=== PATIENT | male | born 1945 | race Caucasian/White ===

== ENCOUNTER 2017-02-27 09:36 | Inpatient (IN) | payer OTHER ==
[~2017-02-27] VITALS: Ht 182.9 cm; Wt 100.0 kg
[2017-02-27] VITALS (7 sets, daily range): BP systolic 57–173; BP diastolic 35–87
[2017-02-27 09:50] LABS: CREATININE 1.2 mg/dL (0.6-1.3); POTASSIUM 4.1 mEq/L (3.7-5.4)
[2017-02-27 09:52] LABS: EOSINOPHIL (%) 1.7 % (0-5); EOSINOPHIL COUNT 0.1 K/uL (0-0.3); HEMATOCRIT 49.7 % (38.0-50.0); IMMATURE GRANULOCYTE (%) 0.3 % (0.0-0.7); INSTRUMENT ABS NEUTROPHIL CT 4.6 K/uL; LYMPHOCYTE COUNT 2.3 K/uL (1.0-2.8); MCH 31.4 PG (29.0-34.0); MCHC 33.4 G/DL (30.0-36.0); MCV 94.1 FL (86-99); MEAN PLAT.VOLUME 11.2 uM^3 (9.0-12.4); MONOCYTE (%) 9.8 % (3-12); MONOCYTE COUNT 0.8 K/uL (0-0.8); NEUTROPHIL (%) 58.7 % (45-76); NEUTROPHIL COUNT 4.6 K/uL (1.8-6.4); PLATELET COUNT 233 K/uL (156-360); RBC DIS.WIDTH-CV 12.5 % (11.8-14.6); RBC DIS.WIDTH-SD 43.2 % (39-53); RED BLOOD COUNT 5.28 M/uL (4.00-5.50); WHITE BLOOD COUNT 7.8 K/uL (4.1-10.2)
[2017-02-27 10:08] LABS: INTER. NORMALIZED RATIO 1.1; PROTHROMBIN TIME 11.5 (9.2-11.2); PTT 24.7 (25-32)
[2017-02-27 10:21] LABS: AMYLASE 65 IU/L (1-118); CHLORIDE 104 mEq/L (99-109); POTASSIUM 4.1 mEq/L (3.7-5.4); SODIUM 138 mEq/L (136-147)
[2017-02-27 10:22] LABS: GLUCOSE 183 mg/dL (70-99)
[2017-02-27 10:24] LABS: ANION GAP 14 MEQ/L (2-14)
[2017-02-27 10:25] LABS: SERUM ETHYL ALCOHOL < 10 mg/dL
[2017-02-27 10:26] LABS: GFR ESTIMATE (CALCULATED) 53 mL/min/
[2017-02-27 10:27] LABS: TROP-I INTERPRETATION NEGATIVE; TROPONIN-I < 0.01 ng/mL (0.0-0.30); UREA NITROGEN (BUN) 13 mg/dL (9-23)
[2017-02-27 10:29] LABS: LIPASE 51 U/L (1.0-51.0)
[2017-02-27 11:48] LABS: BASE EXCESS -10.4 mEq/L (-3 to +3); BICARBONATE 21.2 mEq/L (22-26); CARBOXY HGB 1.3 % (0-5); METHEMOGLOBIN 1.5 % (0-1.5); PCO2 70 mm Hg (35-45); PO2 40 mm Hg (80-100); pH 7.09 (7.35-7.45)
[2017-02-27 11:51] LABS: SITE FEMORAL
[2017-02-27 11:53] LABS: COMMENTS - BLOOD GASES DRAWN BY CATH LAB
[2017-02-27 13:30] LABS: BICARBONATE 24.6 mEq/L (22-26); CARBOXY HGB 1.6 % (0-5); METHEMOGLOBIN 1.2 % (0-1.5)
[2017-02-27 13:31] LABS: COMMENTS - BLOOD GASES A+C+; DEVICE BAG; FI02 100 %; O2 FLOW 20 L/MIN; PCO2 83 mm Hg (35-45); PO2 67 mm Hg (80-100); SITE LR; TOTAL RESP RATE 24 resp/min; pH 7.08 (7.35-7.45)
[2017-02-27 13:32] LABS: PEEP 20 CM/H20
[2017-02-27 14:50] LABS: BASE EXCESS -10.1 mEq/L (-3 to +3); CARBOXY HGB 1.3 % (0-5); COMMENTS - BLOOD GASES A+C+; METHEMOGLOBIN 1.4 % (0-1.5); PCO2 52 mm Hg (35-45); PO2 71 mm Hg (80-100); SITE RR; pH 7.17 (7.35-7.45)
[2017-02-27 14:51] LABS: DEVICE VENT; FI02 100 %; MECHANICAL RATE 25 resp/min; MODE BILEVEL; TOTAL RESP RATE 30 resp/min
[2017-02-27 16:27] LABS: METH RESISTANT S AUREUS PCR NEGATIVE (NEGATIVE)
[2017-02-27 16:29] LABS: SPECIMEN PROCESSING CONTROL PASS
[2017-02-27 16:30] LABS: PROBE CHECK PASS
[2017-02-27 19:01] LABS: TROP-I INTERPRETATION POSITIVE; TROPONIN-I > 50.00 ng/mL (0.0-0.30)
[2017-02-27 19:31] LABS: BASE EXCESS -9.6 mEq/L (-3 to +3); BICARBONATE 17.6 mEq/L (22-26); METHEMOGLOBIN 1.7 % (0-1.5)
[2017-02-27 19:32] LABS: COMMENTS - BLOOD GASES A+C+; DEVICE VENT; FI02 100 %; PCO2 42 mm Hg (35-45); PO2 167 mm Hg (80-100); SITE RR; pH 7.23 (7.35-7.45)
[2017-02-27 19:33] LABS: INSPIRATION TIME 1.8 seconds; MECHANICAL RATE 25 resp/min; MODE BILEVEL; PEEP 10 CM/H20; PRESSURE CONTROL VENTILATION 30 CM H20; TOTAL RESP RATE 25 resp/min
[2017-02-27 23:57] LABS: CHLORIDE 109 mEq/L (99-109); SODIUM 136 mEq/L (136-147)
[2017-02-27 23:58] LABS: GLUCOSE 181 mg/dL (70-99)
[2017-02-28] LABS: ANION GAP 11 MEQ/L (2-14)
[2017-02-28 00:03] LABS: UREA NITROGEN (BUN) 19 mg/dL (9-23)
[2017-02-28 00:04] LABS: BASE EXCESS -10.5 mEq/L (-3 to +3); BICARBONATE 15.2 mEq/L (22-26); COMMENTS - BLOOD GASES C+; DEVICE 840 VENT; FI02 80 %; INSPIRATION TIME 1.8 seconds; MECHANICAL RATE 25 resp/min; METHEMOGLOBIN 1.4 % (0-1.5); MODE BILEVEL; PCO2 33 mm Hg (35-45); PO2 295 mm Hg (80-100); SITE ALINE; TOTAL RESP RATE 25 resp/min; pH 7.27 (7.35-7.45)
[2017-02-28 00:05] LABS: PEEP 10 CM/H20; PRESSURE CONTROL VENTILATION 30 CM H20
[2017-02-28 00:22] LABS: GFR ESTIMATE (CALCULATED) 29 mL/min/; POTASSIUM 6.1 mEq/L (3.7-5.4)
[2017-02-28 00:48] LABS: TROP-I INTERPRETATION POSITIVE
[2017-02-28 01:44] LABS: TROPONIN-I > 440.00 ng/mL (0.0-0.30)
[2017-02-28 02:45] LABS: CHLORIDE 114 mEq/L (99-109); MAGNESIUM 1.8 mg/dL (1.3-2.7); POTASSIUM 5.7 mEq/L (3.7-5.4); SODIUM 137 mEq/L (136-147)
[2017-02-28 02:47] LABS: GLUCOSE 186 mg/dL (70-99)
[2017-02-28 02:48] LABS: ANION GAP 9 MEQ/L (2-14)
[2017-02-28 02:51] LABS: GFR ESTIMATE (CALCULATED) 29 mL/min/; INTER. NORMALIZED RATIO 1.3; PROTHROMBIN TIME 12.8 (9.2-11.2); UREA NITROGEN (BUN) 20 mg/dL (9-23)
[2017-02-28 02:52] LABS: PTT 114.8 (25-32)
[2017-02-28 05:50] LABS: BASE EXCESS -9.5 mEq/L (-3 to +3); BICARBONATE 16.5 mEq/L (22-26); CARBOXY HGB 1.2 % (0-5); COMMENTS - BLOOD GASES C+; DEVICE 980 VENT; FI02 60 %; MECHANICAL RATE 25 resp/min; METHEMOGLOBIN 1.4 % (0-1.5); MODE BILEVEL; PCO2 36 mm Hg (35-45); PO2 182 mm Hg (80-100); SITE ALINE; TOTAL RESP RATE 25 resp/min; pH 7.27 (7.35-7.45)
[2017-02-28 05:51] LABS: INSPIRATION TIME 1.8 seconds; PEEP 10 CM/H20; PRESSURE CONTROL VENTILATION 28 CM H20
[2017-02-28 06:42] LABS: ANION GAP 9 MEQ/L (2-14); CHLORIDE 112 MEQ/L (99-109); GFR ESTIMATE (CALCULATED) 29 mL/min/; GLUCOSE 177 mg/dL (70-99); POTASSIUM 5.4 MEQ/L (3.7-5.4); SAMPLE HEMOLYSIS CHECK 0; SAMPLE ICTERIC CHECK 0; SAMPLE LIPEMIA CHECK 0; SODIUM 137 MEQ/L (136-147); UREA NITROGEN (BUN) 21 mg/dL (9-23)
[2017-02-28 06:53] LABS: EOSINOPHIL (%) 0 % (0-5); HEMATOCRIT 50.2 % (38.0-50.0); IMMATURE GRANULOCYTE (%) 0.6 % (0.0-0.7); IMMATURE GRANULOCYTE COUNT 0.1 K/uL; INSTRUMENT ABS NEUTROPHIL CT 12.1 K/uL; LYMPHOCYTE COUNT 2.2 K/uL (1.0-2.8); MCH 31.2 PG (29.0-34.0); MCHC 32.3 G/DL (30.0-36.0); MCV 96.5 FL (86-99); MEAN PLAT.VOLUME 11.7 uM^3 (9.0-12.4); MONOCYTE (%) 11.4 % (3-12); MONOCYTE COUNT 1.9 K/uL (0-0.8); NEUTROPHIL (%) 74.5 % (45-76); NEUTROPHIL COUNT 12.1 K/uL (1.8-6.4); PLATELET COUNT 234 K/uL (156-360); RBC DIS.WIDTH-CV 13.4 % (11.8-14.6)
[2017-02-28 06:54] LABS: WHITE BLOOD COUNT 16.2 K/uL (4.1-10.2)
[2017-02-28 07:11] LABS: TROP-I INTERPRETATION POSITIVE; TROPONIN-I > 440.00 ng/mL (0.0-0.30)
[2017-02-28 11:52] VITALS: BP 96/65
[2017-02-28 12:15] LABS: BASE EXCESS -11.3 mEq/L (-3 to +3); BICARBONATE 14.9 mEq/L (22-26); CARBOXY HGB 1.6 % (0-5); METHEMOGLOBIN 1.5 % (0-1.5); PCO2 34 mm Hg (35-45); PO2 159 mm Hg (80-100); SITE A LINE
[2017-02-28 12:16] LABS: CONTINUOUS POS AIRWAY PRESSURE 10 cm H2O; DEVICE VENT; FI02 60 %; INSPIRATION TIME 1.8 seconds; MECHANICAL RATE 25 resp/min; MODE BILEVEL; PEEP 26 CM/H20; TOTAL RESP RATE 25 resp/min
[2017-02-28 12:17] LABS: pH 7.25 (7.35-7.45)
[2017-02-28 13:08] LABS: TROP-I INTERPRETATION POSITIVE
[2017-02-28 13:29] LABS: TROPONIN-I 358.04 ng/mL (0.0-0.30)
== END 2017-02-28 15:31 | disposition short-term general hospital (02) | DRG 270 ==
LOC: EME 09:36 → CATH 10:12 → 4WEST 11:35 → 2SOUTH 11:35 → 4WEST 13:02
PROVIDERS: Anesthesiology; Emergency Medicine; Internal Medicine Cardiovascular Disease; Internal Medicine Pulmonary Disease
PROC: 5A1223Z Performance of Cardiac Pacing, Continuous (ICD-10-PCS; principal; 2017-02-27)
PROC: 4A023N7 Measurement of Cardiac Sampling and Pressure, Left Heart, Percutaneous Approach (ICD-10-PCS; principal; 2017-02-27)
PROC: B2151ZZ Fluoroscopy of Left Heart using Low Osmolar Contrast (ICD-10-PCS; principal; 2017-02-27)
PROC: 027034Z Dilation of Coronary Artery, One Artery with Drug-eluting Intraluminal Device, Percutaneous Approach (ICD-10-PCS; principal; 2017-02-27)
PROC: B2111ZZ Fluoroscopy of Multiple Coronary Arteries using Low Osmolar Contrast (ICD-10-PCS; principal; 2017-02-27)
PROC: 5A02210 Assistance with Cardiac Output using Balloon Pump, Continuous (ICD-10-PCS; principal; 2017-02-27)
PROC: 0BH17EZ Insertion of Endotracheal Airway into Trachea, Via Natural or Artificial Opening (ICD-10-PCS; 2017-02-27)
PROC: 5A1945Z Respiratory Ventilation, 24-96 Consecutive Hours (ICD-10-PCS; 2017-02-27)
PROC: 03H Upper Arteries, Insertion (ICD-10-PCS; 2017-02-27)
PROC: 03HB03Z Insertion of Infusion Device into Right Radial Artery, Open Approach (ICD-10-PCS; 2017-02-27)
DX: I21.01 ST elevation (STEMI) myocardial infarction involving left main coronary artery (principal); R57.0 Cardiogenic shock; I49.01 Ventricular fibrillation; J96.00 Acute respiratory failure, unspecified whether with hypoxia or hypercapnia; I50.21 Acute systolic (congestive) heart failure; I46.2 Cardiac arrest due to underlying cardiac condition; E87.2 Acidosis; I50.1 Left ventricular failure, unspecified; I47.2 Ventricular tachycardia; I34.0 Nonrheumatic mitral (valve) insufficiency; J44.9 Chronic obstructive pulmonary disease, unspecified; J45.909 Unspecified asthma, uncomplicated; I11.0 Hypertensive heart disease with heart failure; I35.1 Nonrheumatic aortic (valve) insufficiency; K64.8 Other hemorrhoids
CPT/HCPCS: 36600; 71010; 80047; 80048; 80048 91; 80076; 80306 90; 81003; 82150; 82803; 83605; 83690; 83735; 84100; 84484; 85025; 85347; 85610; 85730; 86900; 86901; 87641; 93005; 93306; 94002; 94003; 99281; 99285; C1725; C1752; C1760; C1769; C1874; C1887; C1894; C1898; G0480; J0282; J0330; J0461; J0690; J1644; J1940; J2060; J2250; J2370; J2405; J2710; J3010; J3246; J7030; J7050